=== PATIENT | male | born 1990 | race African-American/Black ===

== ENCOUNTER 2025-05-06 15:43 | Emergency (ER) | payer OTHER ==
[~2025-05-06] VITALS: Ht 185.4 cm; Wt 72.6 kg
[2025-05-06 16:11] VITALS: TEMP 98.5
[2025-05-06] MEDS: IV NS 0.9% 1,000 ML BAG IV ONE (18:00)
[2025-05-06 18:02] LABS: FRACTIONATED INSPIRED OXYGEN-V 21.0 %; SITE, VBG VBG - N/A; VBG BASE EXCESS -6.7 mmol/L (-2.0-3.0); VBG HCO3 17.5 mmol/L (22.0-29.0); VBG MetHb 0.3 % (0.5-1.5); VBG OXYGEN SATURATION 91.4 % (60.0-85.0); VBG PCO2 31.9 mmHg (38.0-54.0); VBG PH 7.356 (7.320-7.430); VBG PO2 58.7 mmHg (23.0-48.0); VBG TOTAL HEMOGLOBIN 16.4 G/dL (13.5-17.5)
[2025-05-06 18:04] LABS: PLATELET COUNT (AUTO) 223 K/uL (150-450); RED BLOOD CELL COUNT(AUTO) 4.95 MIL/uL (4.5-6.0); RED CELL DISTRIBUTION WIDTH 12.9 % (11.5-15.0); WHITE BLOOD COUNT (AUTO) 4.1 K/uL (4.3-11.0)
[2025-05-06 18:12] LABS: CALCIUM, SERUM 8.9 mg/dL (8.5-10.1); CREATININE 1.0 mg/dL (0.6-1.3); SODIUM SERUM 131 mmol/L (136-145); UREA NITROGEN, BLOOD 10 mg/dL (7-18)
[2025-05-06 18:17] LABS: ASPARTATE AMINOTRANSFERASE 20 U/L (15-37); TOTAL PROTEIN, SERUM 7.4 g/dL (6.4-8.2)
[2025-05-06] MEDS ORDERED: INSULIN REGULAR, HUMAN 100 UNIT/ML 10 ML VIAL SQ ONE (18:30)
[2025-05-06] MEDS ORDERED: INSULIN REGULAR, HUMAN 100 UNIT/ML 10 ML VIAL ONE (18:36)
[2025-05-06] MEDS: INSULIN REGULAR, HUMAN 100 UNIT/ML 10 ML VIAL SQ ONE (18:40)
[2025-05-06 19:55] VITALS: BP 120/76; O2SAT 98
== END 2025-05-06 19:55 ==
LOC: ER 16:10
DX: E11.65 Type 2 diabetes mellitus with hyperglycemia (principal); F17.200 Nicotine dependence, unspecified, uncomplicated; R07.9 Chest pain, unspecified; Z60.2 Problems related to living alone
CPT/HCPCS: 99285; 71045; 96372; 93005; 82803 ×2; 85025; 80048; 82010; 83690; 80076; 36415; 84484; 82962 ×2; 36600; J1815